=== PATIENT | female | born 1980 | race Caucasian/White ===

== ENCOUNTER 2017-05-11 21:07 | Emergency (ER) | payer BC ==
[~2017-05-11] VITALS: Ht 165.1 cm; Wt 68.0 kg
[~2017-05-11 21:07] MED LIST: CETI10TA24 PO; DIPH25CA61 PO; FLUT9.9S NAS; MULT-516 PO; PARO40TA61 PO; VITAMIN C PO
[2017-05-11 21:26] LABS: DAU SCREEN DISCLAIMER
[2017-05-11 22:28] VITALS: BP 122/82
[2017-05-11] MEDS ORDERED: TRIA0.25 PO (22:36)
== END 2017-05-11 23:35 | disposition home or self-care (01) ==
LOC: EDBD 21:07 → MERGE 21:07 → ED 22:50
DX: F43.0 Acute stress reaction (principal); F32.9 Major depressive disorder, single episode, unspecified; F13.10 Sedative, hypnotic or anxiolytic abuse, uncomplicated
CPT/HCPCS: 36415; 80307; 99284; G0479